=== PATIENT | female | born 2000 | race Caucasian/White ===

== ENCOUNTER 2024-04-27 07:32 | Outpatient (CLI) | payer OTHER, SELFPAY | END 2024-04-27 07:33 | disposition home or self-care (01) | PROVIDERS: Visit Provider Family Medicine | DX: D64.9 Anemia, unspecified (principal); Z12.4 Encounter for screening for malignant neoplasm of cervix; Z79.899 Other long term (current) drug therapy; Z11.59 Encounter for screening for other viral diseases | CPT/HCPCS: 80053; 86592; 86703; 86803; 88141; 88142 ==

== ENCOUNTER 2024-05-03 10:51 | Outpatient (CLI) | payer OTHER, SELFPAY ==
[2024-05-06 08:55] LABS: HPV Source Endocervical; HPV, High Risk by TMA Detected
[2024-05-06 22:57] LABS: HPV Genotype 16 by TMA Not Detected; HPV Genotype 18/45 by TMA Not Detected; HPVG Source Endocervical
== END 2024-05-03 10:52 | disposition home or self-care (01) ==
LOC: FRMREF 10:51
PROVIDERS: PCP Family Medicine; Visit Provider Family Medicine
DX: Z12.4 Encounter for screening for malignant neoplasm of cervix (principal)
CPT/HCPCS: 87624; 87625

== ENCOUNTER 2025-02-13 11:24 | Outpatient (CLI) | payer OTHER, SELFPAY ==
[2025-02-13 23:10] LABS: Chlamydia DNA Amplified* NOT DETECTED (No Detected); GC DNA Amplified* NOT DETECTED (No Detected)
== END 2025-02-13 11:25 | disposition home or self-care (01) ==
PROVIDERS: PCP Family Medicine; Visit Provider Family Medicine
DX: D64.9 Anemia, unspecified (principal); L70.9 Acne, unspecified; Z11.3 Encounter for screening for infections with a predominantly sexual mode of transmission; Z11.59 Encounter for screening for other viral diseases
CPT/HCPCS: 86592; 86703; 86803; 87491; 87591

== ENCOUNTER 2025-03-12 08:45 | Outpatient (CLI) | payer OTHER, SELFPAY | END 2025-03-12 08:46 | disposition home or self-care (01) | PROVIDERS: PCP Family Medicine; Visit Provider Family Medicine | DX: E07.89 Other specified disorders of thyroid (principal); R11.0 Nausea | CPT/HCPCS: 80053; 83690; 84439; 84443 ==

== ENCOUNTER 2025-03-27 08:01 | Outpatient (CLI) | payer OTHER, SELFPAY ==
--- NOTE | 2025-03-27 08:15 | CRLHL7_ITS ---
For Patients: As a result of the Century Cures Act, medical imaging exams and procedure reports are released immediately into your electronic medical record. You may view this report before your referring provider. If you have questions, please contact your health care provider. INDICATION : Left thyroid nodule. TECHNIQUE : Ultrasound-guided fine needle aspiration of thyroid nodule. COMPARISON : Outside exam 03/19/2025 FINDINGS : PROCEDURE: After the informed consent and time-out, multiple fine needle aspirations were obtained from the thyroid nodule. Fine needle performed. 25 gauge needles were used. Six samples obtained. Lidocaine was used for local anesthesia. The preliminary cytology was adequate for interpretation. Real-time imaging was used for guidance and needle placement. Post imaging ultrasound demonstrates no immediate complication. IMPRESSION : Successful fine needle aspiration of large 6.7 cm left thyroid lobe nodule. Dictated by Pablo Bueno MD @ 03/27/2025 9:24:24 AM (Electronically Signed)
== END 2025-03-27 08:02 | disposition home or self-care (01) ==
LOC: US 08:02
PROVIDERS: PCP Family Medicine; Visit Provider Family Medicine
DX: E04.1 Nontoxic single thyroid nodule (principal); E07.89 Other specified disorders of thyroid
CPT/HCPCS: 10005; 76942; 88173